=== PATIENT | male | born 1945 | race Caucasian/White ===

== ENCOUNTER 2024-04-06 06:26 | Day surgery (SDC) | payer OTHER, SELFPAY ==
[2024-04-06] VITALS (11 sets, daily range): BP systolic 111–141; BP diastolic 64–116; BMI 22.2
[2024-04-06] MEDS: NSS 1000 IV (11:20)
--- NOTE | 2024-04-06 18:16 | ITS.CL.CATH ---
Interdisciplinary Professor - Catheterization
Cardiac Catheterization
Procedure Report:
RIGHT and LEFT HEART CATHETERIZATION
Date of Procedure: 04/06/2024
Procedures performed:
1: Coronary angiography
2: Left ventricular hemodynamic assessment
3: Right heart catheterization
Primary Care Physician: Dr. Edgard Mcgill
Primary Feller Operator: Dr. Jose Iniguez
INDICATION: The patient is a 78-year-old man with a past medical history significant for coronary artery disease status post prior LAD and diagonal stenting with angioplasty alone of the circumflex in 2014, hypertension, hyperlipidemia, and s/p TAVR
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 ECG performed September 28, 2023 showed new left bundle branch block as compared to prior EKG in February 2023. Echocardiogram performed on April 04, 2024 showed a drop in ejection fraction from normal to 20 to 25% with global LV systolic
dysfunction. The TAVR valve appeared to be functioning well with mild perivalvular aortic regurgitation. There was new moderate to severe mitral regurgitation in the setting of significant LV dysfunction with LV dilation. He has no new typical
anginal symptoms but in light of his new LV dysfunction with significant mitral regurgitation is referred for diagnostic right and left heart catheterization. In retrospect, he thinks he has not felt as well over the past month or so.
ACCESS: The patient was prepped and draped in usual sterile fashion. A 6 [place] sheath was placed in the right radial artery using the Seldinger over the wire technique.
HEMODYNAMIC FINDINGS (mmHg):
RA(a,v,m): 12, 8, 8
RV(s/d,EDP): 43/8, 13
PA(s/d/m): 40/20, 28
PCWP(a,v,m): 24, 33, 25
LV(s/d,EDP): 100/15, 26
Ao(s/d,m): 89/50, 66
Oxygen Saturations (mg/dl):
PA: 66% on room air
LV: 97% on room air
Cardiac Output/Index (l/min / l/min/m2):
Estimated Gus Method: 4.8 /2.7
VALVE HEMODYNAMICS:
No significant aortic or mitral valve stenosis.
ANGIOGRAPHIC FINDINGS:
Single-plane Left Ventriculography in [place] Projection: Not done.
Coronary Angiography:
Dominance: Right
Left Main: Short, normal
Left Anterior Descending: The left anterior descending artery is a medium to large caliber vessel that has extensive long overlapping stenting with no significant in-stent restenosis. The distal LAD wraps around the apex to feed a portion of the
distal inferior wall. The apical LAD has diffuse 90% disease with preserved distal flow. The major diagonal branch has a hazy ostial 30% stenosis followed by a smooth 50-60% stenosis at the leading edge of a widely patent mid diagonal stent. The
diagonal branch has normal distal flow. This appears similar to prior angiography in 2019.
Left Circumflex: The left circumflex is a relatively small caliber nondominant vessel that gives rise to 1 major obtuse marginal branch. The proximal circumflex has mild luminal irregularities. The obtuse marginal branch is a tandem proximal
80-90% stenoses which appear unchanged compared to prior angiography in 2021. There is a large distal circumflex collateral that supplies the medium caliber right-sided posterior left ventricular branch.
Right Coronary: The right coronary artery is a relatively large caliber dominant vessel. The proximal vessel has a richards's crook takeoff with a smooth proximal 50% stenosis which appears slightly worse than on prior angiography in 2021. The mid
vessel is ectatic but free of significant stenotic disease. The distal vessel has areas of 30 to 50% smooth disease which appear unchanged. The distal right coronary gives rise to a medium caliber posterior descending artery that is widely patent.
The distal PLV branch is proximally occluded but fills via left to right collaterals.
Fluoroscopy Time (min): 6.8
Radiation Dose (mGy): 352
DAP (Gy.cm2): 25
Closure device: None. A TR band was applied for hemostasis at the right wrist.
Complications: None.
ASSESSMENT:
1: Unchanged coronary anatomy with a widely patent previously placed LAD stent, unchanged major diagonal branch, OM-1, and distal right PDA disease. Given his new global cardiomyopathy I doubt this is CAD is the culprit.
2: Mildly elevated left ventricular filling pressures with significant V wave on pulmonary capillary wedge tracing consistent with mitral regurgitation.
3: Elevated left ventricular filling pressures.
4: Mild stenosis across the TAVR on pullback.
CONCLUSIONS and RECOMMENDATIONS:
1: Medical therapy for severe LV dysfunction and coronary artery disease.
2: Plan for JULIAN to further define the mechanism of mitral regurgitation. I suspect this is functional regurgitation related to left ventricular dilation with poor leaflet coaptation. Given his new left bundle branch block and cardiomyopathy, I
would then consider resynchronization therapy. If LV dysfunction and mitral regurgitation persisted despite goal-directed medical therapy and resynchronization therapy then consider MitraClip for severe functional mitral regurgitation with
progressive symptoms.
3: Close clinical follow-up with Dr. Iniguez as scheduled.
Dharmesh Mcgregor M.D.
== END 2024-04-06 12:15 | disposition home or self-care (01) ==
LOC: CATH 06:26
PROVIDERS: ATTENDING PHYSICIAN Internal Medicine Interventional Cardiology; FAMILY PHYSICIAN Family Medicine; OTHER PHYSICIAN Internal Medicine Cardiovascular Disease
DX: I25.10 Atherosclerotic heart disease of native coronary artery without angina pectoris (principal); Z95.5 Presence of coronary angioplasty implant and graft; Z95.2 Presence of prosthetic heart valve; I44.7 Left bundle-branch block, unspecified; I42.9 Cardiomyopathy, unspecified; I34.0 Nonrheumatic mitral (valve) insufficiency; I10 Essential (primary) hypertension; E78.5 Hyperlipidemia, unspecified; Z87.891 Personal history of nicotine dependence; Z79.02 Long term (current) use of antithrombotics/antiplatelets; Z79.82 Long term (current) use of aspirin
CPT/HCPCS: 93460; C1894; Q9967

== ENCOUNTER 2024-04-14 07:13 | Day surgery (SDC) | payer OTHER, SELFPAY | END 2024-04-14 10:17 | disposition home or self-care (01) | LOC: CATH 07:13 | PROVIDERS: ATTENDING PHYSICIAN Internal Medicine Cardiovascular Disease; FAMILY PHYSICIAN Family Medicine; OTHER PHYSICIAN Internal Medicine Cardiovascular Disease | DX: I08.3 Combined rheumatic disorders of mitral, aortic and tricuspid valves (principal); Z95.2 Presence of prosthetic heart valve; I25.10 Atherosclerotic heart disease of native coronary artery without angina pectoris; I10 Essential (primary) hypertension; Z95.5 Presence of coronary angioplasty implant and graft; E78.00 Pure hypercholesterolemia, unspecified; Z79.02 Long term (current) use of antithrombotics/antiplatelets; Z79.82 Long term (current) use of aspirin | CPT/HCPCS: 93312; 93320; 93325 ==